=== PATIENT | female | born 1980 | race Caucasian/White ===

== ENCOUNTER → 2021-07-31 | Outpatient (CLI) | payer OTHER ==
--- NOTE | 2021-07-31 12:15 | REP ---
INDICATION: DYSPNEA, UNSPECIFIED. COMPARISON: None. TECHNIQUE: PA and lateral FINDINGS: The superior mediastinal structures are midline. The cardiac silhouette is unremarkable in size, shape, and position. The diaphragmatic surfaces of the lungs are regular, and the costophrenic angles are clear. The pulmonary griffith are clear. There is an incidental tiny calcified granuloma in the right lower lobe. The imaged osseous structures are intact. IMPRESSION: There is no acute cardiopulmonary disease. <Electronically signed by Bayron Barker > 07/31/21 [id number]
== END ==
LOC: M RAD 11:33
PROVIDERS: ATTEND Physician Assistant
DX: R06.09 Other forms of dyspnea (principal)